=== PATIENT | male | born 1980 | race Caucasian/White ===

== ENCOUNTER 2018-10-15 14:22 | Emergency (ER) | payer BC, MEDICAID, OTHER, SELFPAY ==
[~2018-10-15] VITALS: Ht 162.6 cm; Wt 101.5 kg
[2018-10-15 15:17] LABS: BASOPHILS # (AUTO) 0.06 x10^3/uL (0-0.1); BASOPHILS % (AUTO) 1 % (0-1); EOSINOPHILS % (AUTO) 6 % (1-7); LYMPHOCYTES # (AUTO) 3.08 x10^3/uL (1-3.4); LYMPHOCYTES % (AUTO) 40 % (22-44); MD NO; MEAN CORPUSCULAR HGB CONC 33.8 g/dL (33.2-36.2); MEAN CORPUSCULAR VOLUME 94.6 fL (81-97); MEAN PLATELET VOLUME 11.4 fL (7.4-10.4); MONOCYTES # (AUTO) 0.67 x10^3/uL (0.2-0.8); MONOCYTES % (AUTO) 9 % (2-9); NEUTROPHILS # (AUTO) 3.47 x10^3/uL (1.8-6.8); NEUTROPHILS % (AUTO) 45 % (42-75); PLATELET COUNT 212 x10^3/uL (130-400); RED BLOOD COUNT 5.24 x10^6/uL (4.38-5.82); RED CELL DISTRIBUTION WIDTH 12.5 % (9.4-14.8)
--- NOTE | 2018-10-15 15:20 | NUR ---
ASSUMED CARE OF PT AT THIS TIME FROM LOBBY. PT ABLE TO TRANSFER FROM WHEELCHAIR TO RNEY EASILY.
[2018-10-15 15:26] LABS: ANION GAP 5 mmol/L (5-15); CALCIUM 8.8 mg/dL (8.5-10.1); CHLORIDE 105 mmol/L (98-107)
[2018-10-15] MEDS ORDERED: AMPH20CA7 PO (15:27)
[2018-10-15] MEDS ORDERED: AMPH20TA2 PO (15:27)
[2018-10-15 15:30] LABS: ALANINE AMINOTRANSFERASE 62 U/L (12-78); ALKALINE PHOSPHATASE 70 U/L (45-117); BILIRUBIN,TOTAL 0.4 mg/dL (0.2-1.0); CREATININE 0.97 mg/dL (0.7-1.3); TOTAL PROTEIN 7.8 g/dL (6.4-8.2)
[2018-10-15] MEDS ORDERED: INSU100V5 SQ-INSULIN (15:30)
--- NOTE | 2018-10-15 15:35 | NUR ---
PT C/O CHRONIC ABD PAIN AND NECK PAIN THAT PT REPORTS HAVING FOR 6 YEWARS. PT REPORTS HX OF STOMACH CANCER WITH RADIATION [place] ONLY. PT IS HOMELESS AND REPORTS COMING UP FROM [place] A COUPLE OF DAYS AGO. WAITING FOR ORDERS. PT IS DROWSY AND REPEATEDLY FALLS ASLEEP WHEN ASKING PT QUESTIONS. PT ON MONITOR.
--- NOTE | 2018-10-15 16:10 | NUR ---
DR. BROWN AT BEDSIDE.
--- NOTE | 2018-10-15 16:17 | NUR ---
REPORT RECEIVED FROM
[2018-10-15 17:47] VITALS: BP 115/62
--- NOTE | 2018-10-15 17:58 | NUR ---
PT DOESN'T KNOW HIS HOME MEDICATIONS. THIS RN CALLED PHARMACY(2 DIFFERENT PLACES) AND THEY DON'T KNOW WELL. SALES SERVICE ASSISTANT PAGED PER EDMD ORDER.
== END 2018-10-15 20:34 | disposition home or self-care (01) ==
LOC: ED 20:23
DX: E11.65 Type 2 diabetes mellitus with hyperglycemia (principal); F17.200 Nicotine dependence, unspecified, uncomplicated; F90.9 Attention-deficit hyperactivity disorder, unspecified type
CPT/HCPCS: 36415; 80053; 83690; 85025; 99283

== ENCOUNTER 2020-05-15 15:00 | Emergency (ER) | payer SELFPAY ==
[~2020-05-15] VITALS: Ht 165.1 cm; Wt 99.8 kg
[~2020-05-15 15:00] MED LIST: AMPH20CA7 PO; AMPH20TA2 PO; INSU100V5 SQ-INSULIN
[2020-05-15 15:08] VITALS: BP 136/98
--- NOTE | 2020-05-15 15:50 | NUR ---
ATTMEPTED TO DC PT FROM LOBBY. PT REQUESTED TO SPEAK TO ED SOIL ENGINEER. SUEPRVISOR NOTIFIED. NABILA IN LOBBY SPEAKING WITH PT.
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
--- NOTE | 2020-05-15 16:37 | NUR ---
[place] chew in [facility] - 05/15/[address] ATTMEPTED TO [facility] PT FROM [facility]. PT REQUESTED TO SPEAK TO ED INFRASTRUCTURE PROJECT MANAGER. ANAI NOTIFIED. NABILA IN [facility] SPEAKING WITH PT.
== END 2020-05-15 16:48 | disposition home or self-care (01) ==
LOC: ED 16:30
DX: L20.84 Intrinsic (allergic) eczema (principal); B35.6 Tinea cruris; R23.4 Changes in skin texture; E11.9 Type 2 diabetes mellitus without complications; F17.200 Nicotine dependence, unspecified, uncomplicated
CPT/HCPCS: 99283

== ENCOUNTER 2020-09-12 14:12 | Outpatient (CLI) | payer OTHER | END 2020-09-12 23:59 | disposition home or self-care (01) | LOC: RAD 14:12 | PROVIDERS: ATTEND Nurse Practitioner Family | DX: S02.2XXA Fracture of nasal bones, initial encounter for closed fracture (principal); S12.110A Anterior displaced Type II dens fracture, initial encounter for closed fracture; S02.30XA Fracture of orbital floor, unspecified side, initial encounter for closed fracture; X58.XXXA Exposure to other specified factors, initial encounter; Y93.89 Activity, other specified; Y92.89 Other specified places as the place of occurrence of the external cause; Y99.8 Other external cause status | CPT/HCPCS: 70486 ==